=== PATIENT | male | born 1990 | race Caucasian/White ===

== ENCOUNTER 2021-11-12 11:15 | Outpatient (CLI) | payer OTHER, SELFPAY ==
--- NOTE | 2021-11-12 11:25 | XR_ITS ---
WS: [id number], AP view, 11/12/2021 Clinical Data: back pain Comparison: None. Findings: No abnormal intraabdominal masses or calcifications are seen. There is no dilatated small bowel or ev idence of obstruction. There is air in the small bowel and colon. There is a large amount of fecal material throughout the c olon. XR/XR KUB [id number] Impression: Large amount of fecal material in the colon.
== END 2021-11-12 11:16 | disposition home or self-care (01) ==
LOC: RAD 11:18
PROVIDERS: PCP Family Medicine; Visit Provider Nurse Practitioner
DX: M54.9 Dorsalgia, unspecified (principal)
CPT/HCPCS: 74018; 81000

== ENCOUNTER 2025-05-18 22:15 | Emergency (ER) | payer SELFPAY ==
[2025-05-18 22:21] VITALS: BP 133/80; PULSE 82; RESP 18; TEMP 36.8; O2SAT 100; BMI 32.8
--- NOTE | 2025-05-18 22:24 | ECG_ITS ---
[facility] Date: 2025-05-18 Pat Name: Fadi Leroy Department: Room: Gender: Male Sales Support Administrator: : 1990 Requested By: Seven Rehman Order Number: [id number] Kwon MD: Nara Brown M.D. Measurements Intervals [place] Rate: 72 P: 55 IA: 155 QRS: 63 QRSD: 78 T: 48 QT: 333 QTc: 366 Interpretive Statements SINUS RHYTHM No previous ECG available for comparison Electronically Signed On 05-18-2025 23:28:13 CDT by Nara Brown M.D. [email or web address]
--- NOTE | 2025-05-18 22:40 | XRR_ITS ---
PROCEDURE INFORMATION: Exam: XR Chest Exam date and time: 05/18/2025 10:42 PM Age: 34 years old Clinical indication: Pain; Angina pectoris; Additional info: Cp TECHNIQUE: Imaging protocol: Radiologic exam of the chest. Views: 1 view. COMPARISON: CR XR KUB [id number] 11/12/2021 11:40 AM FINDINGS: Lungs: Unremarkable. No consolidation. Pleural spaces: Unremarkable. No pleural effusion. No pneumothorax. Heart/Mediastinum: Unremarkable. No cardiomegaly. Bones/joints: Unremarkable. XR/XR chest 1V portable [id number] IMPRESSION: No acute findings.
[2025-05-18 22:43] VITALS: BP 124/74; PULSE 74; O2SAT 97
[2025-05-18 22:47] LABS: Hematocrit 41.1 % (37-53); Hemoglobin 14.90 g/dL (11.27-16.99); Mean Corpuscular HGB Conc 36.3 g/dL (30-55); Mean Corpuscular Hemoglobin 31.1 pg (27-33); Mean Corpuscular Volume 85.8 fl (82-101); Nucleated Red Blood Cells % 0 %; Platelet Count 281 10^3/cmm (157-399); Red Blood Count 4.79 10^6/uL (3.85-5.65); White Blood Count 9.95 10^3/uL (3.29-11.43)
--- NOTE | 2025-05-18 22:48 | ED_ITS ---
HPI - Chest Pain 2 General: Chief Complaint: Chest Pain Stated Complaint: Chest Pain Time Seen by Provider: 05/18/25 22:16 Source: patient Mode of arrival: ambulatory Limitations: no limitations History of Present Illness: Patient is a 34-year-old male who is presenting to the emergency department complaining of central chest pain that began at 0800 this morning. States that it started while he was getting ready for work, he thought it was indigestion and took some Tums which did relieve the pain. States that it came back around noon, and he has since taken Tums again with no relief. Pain is active at this time, nonradiating and he states it is a tightness. He has never had the pain before. No associated symptoms are reported, specifically no shortness of breath, nausea or vomiting, lightheadedness or dizziness, syncope, palpitations, abdominal pain, or diaphoresis. Does report positive family history of heart attacks. He does not report any other personal medical history. His vitals are stable at this time, normal rhythm on the monitor. MD complaint: chest pain Onset (ago): hour(s) Timing of current episode: constant Prior episodes: No Onset: during rest Pain location: substernal Pain radiation: none Severity: moderate Quality: tightness Relieving factors: antacids Exacerbating factors: nothing Associated symptoms: Deny abdominal pain, dyspnea, fever(s), nausea, palpitations or vomiting Treatment prior to arrival: other (Antacids) Related Data Previous Rx's ?Medication ?Instructions ?Recorded amoxicillin 875 mg-potassium 1 tab PO BID 7 days #14 t abs 11/28/23 clavulanate 125 mg tablet Allergies Allergy/AdvReac Type Severity Reaction Status Date / Time No Known Allergies Allergy Verified 11/28/23 15:11 Review of Systems 2 General: Reports: 10 or more systems reviewed and unremarkable except in HPI and below Const: Denies: fever(s), chills or fatigue Eyes: Denies: change in vision ENMT: Denies: throat pain, ear or mastoid pain or nasal discharge Card: Reports: chest pain; Denies: palpitations, swelling of feet/ankles or lightheadedness Resp: Denies: dyspnea, productive cough or wheezing GI: Denies: abdominal pain, nausea, vomiting, diarrhea or constipation : Denies: flank pain, difficulty urinating, dysuria or urinary frequency Musc: Denies: neck pain, back pain or joint pain Skin/Breast: Denies: rash Neuro: Denies: headache(s), numbness in extremities or weakness in extremities PFSH ED 2 PFSH: Social History Smoking and tobacco/nicotine status: current every day tobacco/nicotine user Physical Exam 2 Const: COMMON NORMALS: no acute distress, patient oriented x3 and no limitations GENERAL APPEARANCE: cooperative, comfortable and well developed ORIENTATION/CONSCIOUSNESS: Yes awake, Yes oriented to person, Yes oriented to place and Yes oriented to time HENMT: COMMON NORMALS: normocephalic, atraumatic and hearing grossly normal bilaterally HEAD & SCALP: normocephalic and atraumatic Eye: COMMON NORMALS: Equal, round and reactive pupils present, EOMs intact bilaterally and conjunctivae normal CONJUNCTIVA: Yes conjunctivae normal P UPIL: Yes Equal, round and reactive pupils present Neck/C-Spine: COMMON NORMALS: full ROM, supple and no JVD Resp: COMMON NORMALS: normal respiratory effort, No retractions, No use of accessory muscles and clear to auscultation bilaterally AUSCULTATION: clear to auscultation bilaterally Cardio: COMMON NORMALS: no JVD, regular rate, regular rhythm, No clicks present (Cardio), No murmurs present (Cardio) and No rub (Cardio) RATE: r egular rate RHYTHM: regular rhythm GI: COMMON NORMALS: Normal to inspection, nondistended, normoactive bowel sounds present, Soft to palpation and non-tender AUSCULTATION: Yes normoactive bowel sounds PALPATION: Yes Soft to palpation RECTAL EXAM: Yes deferred Extremity: COMMON NORMALS: normal to inspection, full ROM and capillary refill normal Neuro: COMMON NORMALS: patient oriented x3, moves all extremities, no focal motor deficits and no sensory deficits noted SENSORIUM/ORIENTATION: Yes oriented to person, Yes oriented to place and Yes oriented to time Psych: COMMON NORMALS: mental status grossly normal and Normal thought process present THOUGHT PROCESS: Normal thought process present Skin: COMMON NORMALS: no rashes or lesions noted GENERAL SKIN EXAM: no rashes or lesions noted Course 2 Vital Signs: Vital signs: Vital Signs Temperature 98.3 F 05/18/25 22:21 Pulse Rate 71 05/18/25 23:30 Respiratory Rate 18 05/18/25 22:21 Blood Pressure 139/79 05/18/25 23:30 Pulse Oximetry 98 05/18/25 23:30 Oxygen Delivery Me thod Room Air 05/18/25 22:21 MDM - Chest Pain Medical Decision Making Patient is a 34-year-old male who presented the emergency department chest pain began this morning, initially relieved by Tums but was not relieved after pain recurred at noon and he took Tums again. No personal cardiac history, reported a family history of cardiac disease and heart attack. No other symptoms other than central chest pain was noted. Vital stable on arrival, EKG showing normal sinus rhythm with no acute ST segment changes. Chest x-ray is unremarkable, lab work normal which included negative troponin. Heart score of 0. Very low suspicion that this is ACS, he is to follow-up with primary care for further outpatient management to include possible stress test or echocardiogram. He does get some relief after GI cocktail here, favor GERD but this could be musculoskeletal. He is given strict return precautions to the ED. Lab Data 05/18/25 22:40 05/18/25 22:40 Radiology Impressions Chest X-Ray 05/18/25 22:40 IMPRESSION: No acute findings. Laboratory Results WBC 9.95 10^3/uL (3.29-11.43) 05/18/25 22:40 RBC 4.79 10^6/uL (3.85-5.65) 05/18/25 22:40 Hgb 14.90 g/dL (11.27-16.99) 05/18/25 22:40 Hct 41.1 % (37-53) 05/18/25 22:40 MCV 85.8 fl (82-101) 05/18/25 22:40 MCH 31.1 pg (27-33) 05/18/25 22:40 MCHC 36.3 g/dL (30-55) 05/18/25 22:40 RDW 11.7 % (12.1-15.1) L 05/18/25 22:40 Plt Count 281 10^3/cmm (157-399) 05/18/25 22:40 MPV 9.6 fL (7.4-10.4) 05/18/25 22:40 Neut % (Auto) 57.3 % 05/18/25 22:40 Lymph % (Auto) 30.9 % 05/18/25 22:40 Butler % (Auto) 8.9 % 05/18/25 22:40 Eos % (Auto) 1.4 % 05/18/25 22:40 Baso % (Auto) 1.1 % 05/18/25 22:40 Neut # (Auto) 5.70 10^3/uL (1.8-7.7) 05/18/25 22:40 Lymph # (Auto) 3.1 10^3/uL (0.8-4.8) 05/18/25 22:40 Butler # (Auto) 0.9 10^3/uL (0.2-0.9) 05/18/25 22:40 Eos # (Auto) 0.1 10^3/uL (0.0-0.8) 05/18/25 22:40 Baso # (Auto) 0.1 10^3/uL (0.0-0.1) 05/18/25 22:40 Nucleated RBC % (auto) 0 % 05/18/25 22:40 Nucleated RBCs # 0.0 /100WBC 05/18/25 22:40 Sodium 140 mmol/L (136-145) 05/18/25 22:40 Potassium 3.8 mmol/L (3.5-5.1) 05/18/25 22:40 Chloride 101 mmol/L (98-107) 05/18/25 22:40 Carbon Dioxide 26 mmol/L (22-29) 05/18/25 22:40 Anion Gap 16.8 (5-19) 05/18/25 22:40 BUN 10 mg/dL (6-20) 05/18/25 22:40 Creatinine 0.9 mg/dL (0.7-1.2) 05/18/25 22:40 GFR Calculation 97.2 mL/min (90-130) 05/18/25 22:40 Glucose 103 mg/dL (65-115) 05/18/25 22:40 Calculated Osmolality 289 mOsm/kg (285-295) 05/18/25 22:40 Calcium 10.1 mg/dL (8.5-10.5) 05/18/25 22:40 Total Bilirubin 0.5 mg/dL (0.15-1.2) 05/18/25 22:40 AST 23 U/L (0-40) 05/18/25 22:40 ALT 49 U/L (0-41) H 05/18/25 22:40 Alkaline Phosphatase 80 U/L (40-130) 05/18/25 22:40 Troponin T Baseline < 6 ng/L (0-15) 05/18/25 22:40 Total Protein 7.5 g/dL (6.6-8.7) 05/18/25 22:40 Albumin 4.7 g/dL (3.5-5.2) 05/18/25 22:40 Globulin 2.8 g/dL (1.3-4.6) 05/18/25 22:40 Lipase 44 U/L (13-60) 05/18/25 22:40 All radiology interpretation(s) finalized by discharge Discharge Plan Discharge Patient Disposition: Home Clinical Impression: Chest pain, non-cardiac Condition: Stable Prescriptions: No Action amoxicillin-pot clavulanate 875-125 mg tablet 1 tab PO BID 7 Days Qty: 14 0RF Discharge Orders: Discharge ED (Routine); Ordered 05/19/25 Ordered By: Seven Salas Referrals: Estela Enrique DO [Primary Care Provider, [facility]] Patient Instructions: Patient Portal & Summer Instructions Activity Restrictions/Additional Instructions: Noncardiac Chest Pain Discharge Diagnosis: Noncardiac chest pain (NCCP) following normal troponin, ECG, chest X- ray, and laboratory evaluation. HEART score 0, indicating very low risk for acute coronary syndrome. Discharge Instructions: - Summary: The evaluation in the emergency department did not reveal evidence of acute cardiac, pulmonary, or other life-threatening causes of chest pain. The risk of major adverse cardiac events within 30 days is extremely low in this context. - Return Precautions: Advise immediate return to the emergency department for any of the following: - New, severe, or worsening chest pain - Chest pain associated with shortness of breath, syncope, palpitations, diaphoresis, or radiation to the jaw/left arm - Hemodynamic instability (e.g., hypotension, tachycardia) - Any other concerning or rapidly progressive symptoms - Follow-Up: - Arrange follow-up with primary care within 14?30 days for further outpatient evaluation and management, as recommended by the [employer]. - Outpatient workup may include assessment for gastroesophageal reflux disease (GERD), musculoskeletal causes (e.g., costochondritis), anxiety or panic disorders, or other noncardiac etiologies. - If GERD is suspected, a trial of high-dose proton pump inhibitor (PPI) therapy for 1?2 weeks may be considered as a diagnostic and therapeutic approach. - For musculoskeletal pain, a short course of nonsteroidal anti-inflammatory drugs (NSAIDs) may be reasonable if not contraindicated. - Consideration of psychological comorbidities and referral for further evaluation if indicated. - Patient Education: - Reassure that the risk of a heart attack or other serious cardiac event is extremely low based on current evaluation. - Emphasize the importance of follow-up to address potential noncardiac causes and to ensure ongoing health maintenance. - Documentation: - All test results, risk stratification (HEART score 0), and discharge plan have been communicated to the patient. - Notification of the patient?s primary care provider is recommended to facilitate continuity of care. Print Language: Albanian Coding Level of Care Code ED Enamel Shader for Antelmo Kemp
[2025-05-18 23:00] VITALS: BP 143/80; PULSE 69; O2SAT 97
[2025-05-18 23:07] LABS: Troponin(5th) Baseline < 6 ng/L (0-15)
[2025-05-18 23:09] LABS: Alanine Aminotransferase 49 U/L (0-41); Albumin Level 4.7 g/dL (3.5-5.2); Alkaline Phosphatase 80 U/L (40-130); Anion Gap 16.8 (5-19); Aspartate Amino Transferase 23 U/L (0-40); Blood Urea Nitrogen 10 mg/dL (6-20); Calcium 10.1 mg/dL (8.5-10.5); Carbon Dioxide 26 mmol/L (22-29); Chloride 101 mmol/L (98-107); Creatinine Clr Calc Pharmacy 145.0075; Globulin 2.8 g/dL (1.3-4.6); Glucose 103 mg/dL (65-115); Lipase 44 U/L (13-60); Osmolality Calculated 289 mOsm/kg (285-295); Potassium 3.8 mmol/L (3.5-5.1); Sodium 140 mmol/L (136-145); Total Protein 7.5 g/dL (6.6-8.7)
[2025-05-18 23:30] VITALS: BP 139/79; PULSE 71; O2SAT 98
[2025-05-19] MEDS: lidocaine 2% viscous 15 ML, aluminum-mag hydrox-simethicon 30 ML, sucralfate oral liq 1 GM PO (00:02)
[2025-05-19 00:39] VITALS: BP 160/98; PULSE 71; O2SAT 98
== END 2025-05-19 00:43 | disposition home or self-care (01) ==
PROVIDERS: Emergency Provider Physician Assistant; PCP Family Medicine
DX: R07.89 Other chest pain (principal); Z72.0 Tobacco use
CPT/HCPCS: 71045; 80053; 83690; 84484; 85025; 93005; 99285; J9999